=== PATIENT | female | born 1960 | race Caucasian/White ===

== ENCOUNTER 2019-04-29 07:09 | Outpatient (CLI) | payer SELFPAY ==
--- NOTE | 2019-04-29 14:19 | DI.RAD_ITS ---
SYMPTOM/DIAGNOSIS: PUSTULAR PSORIASIS OF PALMS AND/OR SOLES L40.3 ARTHRITIS SERIES: The bones appear normally mineralized. No bony erosions are seen. There is mild narrowing of the interphalangeal joint space of both hands and mild periarticular spurring, consistent with mild osteoarthritis.
== END 2019-04-29 07:29 ==
PROVIDERS: PCP Physician Assistant; Visit Provider Naturopath
DX: L40.3 Pustulosis palmaris et plantaris (principal); M19.041 Primary osteoarthritis, right hand; M19.042 Primary osteoarthritis, left hand
CPT/HCPCS: 73120

== ENCOUNTER 2019-08-14 16:46 | Outpatient (REF) | payer SELFPAY ==
[2019-08-14 21:55] LABS: FREE T4 1.37 ng/dL (0.76-1.46); TSH 1.47 uIU/mL (0.36-3.74)
[2019-08-15 04:46] LABS: Vitamin D 25 Total 65.2 ng/ml (30-100)
[2019-08-15 22:42] LABS: CRP, High Sensitivity 1.45 mg/L (See Note)
[2019-08-15 22:57] LABS: T3,Free 2.9 pg/mL (2.8-5.3)
[2019-08-20 09:08] LABS: IgA 133 mg/dL (85-499); Tissue Transglutaminase IgA <1.2 U/mL (<4.0)
== END 2019-08-14 17:06 ==
LOC: NCHCN 16:46
PROVIDERS: PCP Physician Assistant; Visit Provider Physician Assistant
DX: L40.3 Pustulosis palmaris et plantaris (principal); E78.5 Hyperlipidemia, unspecified; E03.9 Hypothyroidism, unspecified; E55.9 Vitamin D deficiency, unspecified
CPT/HCPCS: 82306; 82784; 83516; 86141; 84439; 84443; 84481

== ENCOUNTER 2020-05-27 15:57 | Outpatient (REF) | payer SELFPAY ==
[2020-05-27 21:15] LABS: TSH (W/Ref FT4) 1.13 uIU/mL (0.36-3.74)
== END 2020-05-27 16:17 ==
LOC: NCHCN 15:57
PROVIDERS: PCP Physician Assistant; Visit Provider Physician Assistant
DX: E03.9 Hypothyroidism, unspecified (principal)
CPT/HCPCS: 84443

== ENCOUNTER 2021-09-07 20:26 | Outpatient (REF) | payer SELFPAY ==
[2021-09-07 19:58] LABS: TSH (W/Ref FT4) 4.65 uIU/mL (0.36-3.74)
[2021-09-07 20:17] LABS: FREE T4 1.04 ng/dL (0.76-1.46)
== END 2021-09-07 20:27 | disposition home or self-care (01) ==
LOC: NCHCN 20:26
PROVIDERS: PCP Physician Assistant; Visit Provider Physician Assistant
DX: E03.9 Hypothyroidism, unspecified (principal)
CPT/HCPCS: 84439; 84443

== ENCOUNTER 2021-11-04 09:15 | Outpatient (REF) | payer SELFPAY ==
[2021-11-04 19:56] LABS: TSH (W/Ref FT4) 0.19 uIU/mL (0.36-3.74)
[2021-11-04 20:38] LABS: FREE T4 1.38 ng/dL (0.76-1.46)
== END 2021-11-04 09:16 | disposition home or self-care (01) ==
LOC: NCHCN 09:15
PROVIDERS: PCP Physician Assistant; Visit Provider Physician Assistant
DX: E03.9 Hypothyroidism, unspecified (principal)
CPT/HCPCS: 84439; 84443

== ENCOUNTER 2022-09-07 17:54 | Outpatient (REF) | payer SELFPAY ==
[2022-09-07 21:55] LABS: TSH 0.06 uIU/mL (0.36-3.74)
== END 2022-09-07 17:55 | disposition home or self-care (01) ==
LOC: NCHCN 17:54
PROVIDERS: PCP Physician Assistant; Visit Provider Physician Assistant
DX: E03.9 Hypothyroidism, unspecified (principal)
CPT/HCPCS: 84443

== ENCOUNTER 2022-11-07 13:23 | Outpatient (REF) | payer SELFPAY ==
[2022-11-07 19:41] LABS: TSH 0.04 uIU/mL (0.36-3.74)
== END 2022-11-07 13:24 | disposition home or self-care (01) ==
LOC: NCHCN 13:23
PROVIDERS: PCP Physician Assistant; Visit Provider Physician Assistant
DX: E03.9 Hypothyroidism, unspecified (principal)
CPT/HCPCS: 84443

== ENCOUNTER 2022-12-16 13:10 | Outpatient (REF) | payer SELFPAY ==
[2022-12-16 20:08] LABS: TSH 0.11 uIU/mL (0.36-3.74)
== END 2022-12-16 13:11 | disposition home or self-care (01) ==
LOC: NCHCN 13:10
PROVIDERS: PCP Physician Assistant; Visit Provider Physician Assistant
DX: E03.9 Hypothyroidism, unspecified (principal)
CPT/HCPCS: 84443

== ENCOUNTER 2023-01-26 09:41 | Outpatient (REF) | payer SELFPAY ==
[2023-01-26 19:25] LABS: TSH 0.86 uIU/mL (0.36-3.74)
== END 2023-01-26 09:42 | disposition home or self-care (01) ==
LOC: NCHCN 09:41
PROVIDERS: PCP Physician Assistant; Visit Provider Physician Assistant
DX: E03.9 Hypothyroidism, unspecified (principal)
CPT/HCPCS: 84443

== ENCOUNTER 2023-09-13 10:44 | Outpatient (REF) | payer SELFPAY ==
[2023-09-08 19:23] LABS: TSH (W/Ref FT4) 2.37 uIU/mL (0.36-3.74)
== END 2023-09-13 10:45 | disposition home or self-care (01) ==
LOC: NCHCN 10:44
PROVIDERS: PCP Physician Assistant; Visit Provider Physician Assistant
DX: E03.9 Hypothyroidism, unspecified (principal)
CPT/HCPCS: 84443

== ENCOUNTER 2024-09-13 20:01 | Outpatient (REF) | payer SELFPAY ==
[2024-09-13 19:27] LABS: TSH (W/Ref FT4) 1.27 uIU/mL (0.36-3.74)
--- OUTSIDE RECORDS SUMMARY | 2024-09-13 20:03 | XMS_ITS | Encounter Summary ---
Author Organization [facility] Address [address] [place] [address] Care Team Providers Care Grey Percher Name Role Phone Unavailable Primary Care Provider Unavailabl e Encounter Details Date Type Department Care Team (Late st Contact Info) Description 01/18/[address] [facility] - Maple conversion [address] [place] [address] Codi Garcia MD [address] [place] [address] [address] [place] [address] Social History Tobacco Use Types Packs/Day Years Used Date Smoking Tobacco: Never Assessed Comments Unknown Sex and Gender Information Value Date Recorded Sex Assigned at Not on file Legal Sex Female 18:05 EST Gender Identity Not on file Sexual Orientation Not on file documented as of this encounter Plan of Treatment Not on file documented as of this encounter Procedures Procedure Name Priority Date/Time Associated Diagnosis Comments CYTOPATHOLOGY Routine 01/18/2001 0:00 EDT documented in this encounter Results * CYTOPATHOLOGY (01/18/2001 0:00 EDT) Pathology Report: CYTOPATHOLOGY REPORT Reports generated via electronic interface contain original data; however they are lacking the format of the original report. Caution should be taken when reading/interpreti ng unformatted reports. Name: ? SOPHIE NORWOOD ? Accession #: ? [id number] : ? 1960 (Age: 40) ??F ?Collect Date: ? 01/18/2001 Location: ? [facility] ? Receive Date: ? 01/22/2001 Provider: ?CODI GARCIA MD Copy to: ?BEATRICE KAUR ? Specimen/Source: ?ThinPrep Pap Test, Cervix/Endocervix Last Menstrual Period: ? 01/04/01 Hormonal/Contracep tive Status: ? Intrauterine device ? SPECIMEN ADEQUACY ? Satisfactory for evaluation. GENERAL CATEGORIZATION ? Within Normal Limits ? Document reviewed and electronically signed by: ? Jeanna Gonsalez, SCT(ASCP) ? Report Date: ??01/23/2001 13:53 End of Report [facility] 01/18/2001 01/22/2001 us Codi Garcia MD PATHOLOGY ORDERABLES Final Resul t [facility] [address] [place] [address] documented in this encounter Visit Diagnoses Not on filedocumented in this encounter
--- OUTSIDE RECORDS SUMMARY | 2024-09-13 20:03 | XMS_ITS | Encounter Summary ---
Author Organization [facility] Address [address] [place] [address] Care Team Providers Care Environmental Health And Safety Intern Name Role Phone Unavailable Primary Care Provider Unavailabl e Encounter Details Date Type Department Care Team (Late st Contact Info) Description 09/20/2004 Results Only [facility] - Maple conversion [address] [place] [address] Codi Garcia MD [address] [place] [address] [address] [place] [address] Social History Tobacco Use Types [...] Priority Date/Time Associated Diagnosis Comments CYTOPATHOLOGY Routine 09/20/2004 0:00 EST documented in this encounter Results * CYTOPATHOLOGY (09/20/2004 0:00 EST) Pathology Report: CYTOPATHOLOGY REPORT Reports generated via electronic interface contain original data; however they are lacking the format of the original report. Caution should be taken when reading/interpreti ng unformatted reports. Name: ? SOPHIE NORWOOD ? Accession #: ? [id number] : ? 1960 (Age: 43) ??F ?Collect Date: ? 09/20/2004 Location: ? [facility] ? Receive Date: ? 09/22/2004 Provider: ?CODI GARCIA MD Copy to: ? Specimen/Source: ?ThinPrep Pap Test, Cervix/Endocervix Last Menstrual Period: ? 2001 Hormonal/Contracep tive Status: ? Yes: Cenestin Treatment History: ? Hysterectomy: BSO 2001 Other: ? HPVA - HPV testing requested if ASC-US on the current ThinPrep Pap test. ? SPECIMEN ADEQUACY ? Satisfactory for Evaluation - assessment of transformation zone component not applicable ( e.g. atrophy, vaginal sample, hysterectomy) GENERAL CATEGORIZATION ? Negative for Intraepithelial Lesion or Malignancy ? Document reviewed and electronically signed by: ? CLARITA Escobedo(ASCP) ? Report Date: ??09/23/2004 14:15 End of Report [facility] 09/20/2004 09/22/2004 us Codi Garcia MD PATHOLOGY ORDERABLES Final Resul t [facility] [address] [place] [address] documented in this encounter Visit Diagnoses Not on filedocumented in this encounter
--- OUTSIDE RECORDS SUMMARY | 2024-09-13 20:03 | XMS_ITS | Encounter Summary ---
Author Organization [facility] Address [address] [place] [address] Care Team Providers Care Linux Network Administrator Name Role Phone Unknown, Provider MD Primary Care Provider Unava ilable Reason for Visit * Reason Onset Date Comments Other 08/04/2014 Encounter Details Date Type Department Care Team (Late st Contact Info) Description 08/04/2014 Telephone [facility] Urology - [facility] [address] [place] [address] Brie Bradley, RN Other Social History Tobacco Use Types Packs/Day Years Used Date Smoking Tobacco: Never Assessed Comments Unknown Sex and Gender Information Value Date Recorded Sex Assigned at Not on file Legal Sex Female 18:05 EST Gender Identity Not on file Sexual Orientation Not on file documented as of this encounter Miscellaneous Notes * Telephone Encounter - Brie Bradley, RN - 08/04/2014 3216 EST TC to pt, no answer, left msg. Pharmacy would like the allergies list to be updated. Requesting pt to call back to the office. documented in this encounter Plan of Treatment Not on file documented as of this encounter Visit Diagnoses Not on filedocumented in this encounter Care Teams Linux Network Administrator Relationship Specialty Start Date End Date Unknown, Provider, PCP - General 07/24/14 08/06/14 documented as of this encounter
--- OUTSIDE RECORDS SUMMARY | 2024-09-13 20:03 | XMS_ITS | Encounter Summary ---
Author Organization [facility] Address [address] [place] [address] Care Team Providers Care Canal Driver Name Role Phone Geoff Carranza Primary Care Provider [phone] Reason for Visit * Reason Comments Post-OP Follow Up Cystoscopy Stent Removal Encounter Details Date Type Department Care Team (Late st Contact Info) Description 08/15/2014 10:15 EST Post-op Visit [facility] Urology - [facility] [address] [place], [place] [id number] Yony Khan MD [address] [place] [id number] Nephrolithiasis (Primary Dx) Social History Tobacco Use Types Packs/Day Years Used Date Smoking Tobacco: Never Assessed Comments Unknown Sex and Gender Information Value Date Recorded Sex Assigned at Not on file Legal Sex Female 18:05 EST Gender Identity Not on file Sexual Orientation Not on file documented as of this encounter Progress Notes * Yony Khan - 08/15/2014 1025 EST This is a 53-year-old female who had right-sided ureteral calculi. She underwent stent placement followed by ureteroscopy. Her stones were removed in their entirety and she presents now for followup.Her stones were calcium oxalate, 70% dihydrate, 30% monohydrate. She has been feeling well and presents now for removal of her stent. PROCEDURE: After obtaining informed consent, she was taken to the exam room, placed in the supine position. She was prepped and draped in the standard sterile fashion. The cystoscope was inserted into the bladder. The stent was seen emanating from the right ureteral orifice and grasped with a flexible grasper and removed in its entirety. She tolerated the procedure well. She was given one ciprofloxin postprocedure. This was her first stone and we talked about general stone prevention measures including hydration, increasing fruits and vegetables, decreasing sodium and animal protein. She willfollow up on an as-needed basis. documented in this encounter Plan of Treatment Not on file documented as of this encounter Visit Diagnoses Diagnosis Nephrolithiasis- Primary Calculus of kidney documented in this encounter Care Teams Canal Driver Relationship Specialty Start Date End Date Geoff Carranza PA [address] [place] [address] PCP - General 08/07/14 documented as of this encounter
--- OUTSIDE RECORDS SUMMARY | 2024-09-13 20:03 | XMS_ITS | Encounter Summary ---
Author Organization [facility] Address [address] [place] [address] Care Team Providers Care Contracts Attorney Name Role Phone Unavailable Primary Care Provider Unavailabl e Encounter Details Date Type Department Care Team (Late st Contact Info) Description 02/19/2007 Results Only [facility] - Maple conversion [address] [place] [address] Codi Garcia MD [address] [place] [address] [address] [place] [address] Social History Tobacco Use Types [...] Procedure Name Priority Date/Time Associated Diagnosis Comments HPV DETECTION, HIGH RISK TYPES Routine 02/19/2007 8:10 EDT CYTOPATHOLOGY Routine 02/19/2007 0:00 EDT documented in this encounter Results * HUMAN PAPILLOMA VIRUS DNA TEST (02/19/2007 8:10 EDT) Specimen Description Cervix, ThinPrep vial [facility] Result Negative for HPV types 16, 18, 31, 33, 35, 39, 45, 51, 52, 56, 58, 59, and 68. [facility] Report Status Final [id number] [facility] 02/19/2007 8:10 EDT 02/28/2007 8:10 EDT us Codi Garcia MD MICROBIOLOGY - GENERAL ORDERABLE S Final Result [facility] [address] [place] [address] * CYTOPATHOLOGY (02/19/2007 0:00 EDT) Pathology Report: CYTOPATHOLOGY REPORT Reports generated via electronic interface contain original data; however they are lacking the format of the original report. Caution should be taken when reading/interpreti ng unformatted reports. Name: ? SOPHIE RINCON ? Accession #: ? [id number] : ? 1960 (Age: 46) ??F ?Collect Date: ? 02/19/2007 Location: ? [facility] ? Receive Date: ? 02/21/2007 Provider: ?CODI GARCIA MD Copy to: ? Specimen/Source: ?ThinPrep Pap Test, Vagina, processed on [employer] ThinPrep Imaging System, with manual evaluation Last Menstrual Period: ? 2001 Hormonal/Contracep tive Status: ? Yes Treatment History: ? IMANI/BSO: 2001 Other: ? Additional clinical information: Paps WNL since HPVDX - HPV testing requested regardless of diagnosis on current ThinPrep Pap test. ? SPECIMEN ADEQUACY ? Satisfactory for Evaluation - assessment of transformation zone component not applicable ( e.g. atrophy, vaginal sample, hysterectomy) GENERAL CATEGORIZATION ? Negative for Intraepithelial Lesion or Malignancy INTERPRETATION ? Shift in chioma present suggestive of bacterial vaginosis. ? Document reviewed and electronically signed by: ? CLARITA Gray(ASCP) ? Report Date: ??02/27/2007 14:19 End of Report [facility] 02/19/2007 02/21/2007 us Codi Garcia MD PATHOLOGY ORDERABLES Final Resul t [facility] [address] [place] [address] documented in this encounter Visit Diagnoses Not on filedocumented in this encounter
--- OUTSIDE RECORDS SUMMARY | 2024-09-13 20:03 | XMS_ITS | Encounter Summary ---
Author Organization [facility] Address [address] [place] [address] Care Team Providers Care Director Of Recruiting Name Role Phone Unknown, Provider MD Primary Care Provider Unava ilable Reason for Visit * Reason Onset Date Comments Appointment Related 08/06/2014 Encounter Details Date Type Department Care Team ([facility] st Contact Info) Description 08/06/2014 Telephone [facility] Urology - [facility] [place] [address] [place], [place] [id number] Yony Khan MD [address] [place] [address] Appointment Related Social History Tobacco Use Types Packs/Day Years Used Date Smoking Tobacco: Never Assessed Comments Unknown Sex and Gender Information Value Date Recorded Sex Assigned at Not on file Legal Sex Female 18:05 EST Gender Identity Not on file Sexual Orientation Not on file documented as of this encounter Miscellaneous Notes * Telephone Encounter - Twyla Atkinson - 08/06/2014 1429 EST Procedure confirmed with patient. Pt was instructed to check in 3rd floor registration at 12:00 pm for a procedure at 2:00 pm on 08/07/2014. Pt is aware that there is nothing to eat or drink after midnight and will need a otr company truck driver. Twyla Atkinson documented in this encounter Plan of Treatment Not on file documented as of this encounter Visit Diagnoses Not on filedocumented in this encounter Care Teams Director Of Recruiting Relationship Specialty Start Date End Date Unknown, Provider, PCP - General 07/24/14 08/06/14 documented as of this encounter
--- OUTSIDE RECORDS SUMMARY | 2024-09-13 20:03 | XMS_ITS | Referral Summary ---
Author Organization [facility] Address [address] [place] [address] Care Team Providers Care Food Safety Auditor Name Role Phone Geoff Carranza Primary Care Provider [phone] Allergies No known active allergies Medications LEVOTHYROXINE SODIUM (SYNTHROID ORAL) Take 1 Tab by mouth daily. Active FLUOXETINE HCL (FLUOXETINE ORAL) Take 2 Caps by mouth daily. Active oxyCODONE-acetam inophen (PERCOCET) 5-325 mg per tablet Take 1 Tab by mouth every 6 hours as needed for Pain. Active oxyCODONE (ROXICODONE) 5 mg immediate release tablet Take 1 Tab by mouth every 4 hours. 15 Tab 0 08/07/2014 Active Social History Tobacco Use Types Packs/Day Years Used Date Smoking Tobacco: Never Assessed Comments Unknown Sex and Gender Information Value Date Recorded Sex Assigned at Not on file Legal Sex Female 18:05 EST Gender Identity Not on file Sexual Orientation Not on file Last Filed Vital Signs Vital Sign Reading Time Taken Comments Blood Pressure 147/82 08/07/2014 1715 EST Pulse - - Temperature 36.1 ??C (97 ??F) 08/07/2014 1715 EST Respiratory Rate 14 08/07/2014 1715 EST Oxygen Saturation 98% 08/07/2014 1715 EST Inhaled Oxygen Concentration - - Weight - - Height - - Body Mass Index - - Plan of Treatment Not on file Advance Directives For more information, please contact: [phone] * Full Code (Latest Code Status on File) Date Activated Date Inactivated Comments 08/07/2014 12:58 08/07/2014 19:35 Care Teams Food Safety Auditor Relationship Specialty Start Date End Date Geoff Carranza PA [address] [place] [address] PCP - General 08/07/14
--- OUTSIDE RECORDS SUMMARY | 2024-09-13 20:03 | XMS_ITS | Clinical Summary ---
Author Organization [facility] Address [address] [place] [address] Care Team Providers Care Driller'S Assistant Name Role Phone Geoff Carranza Primary Care Provider [phone] Allergies No known active allergies Medications LEVOTHYROXINE [...] Mass Index - - Plan of Treatment Health Maintenance Due Date Last Done Comments Hepatitis C Screen 1960 COVID-19 Vaccine (2023-25 season) 2024 RSV Immunization ( o r 60+ Years) (1 - 1-dose 75+ series) 2034 Advance Directives For more information, please contact: [phone] * Full Code (Latest Code Status on File) Date Activated Date Inactivated Comments 08/07/2014 12:58 08/07/2014 19:35 Care Teams Driller'S Assistant Relationship Specialty Start Date End Date Geoff Carranza PA [address] [place] [id number] PCP - General 08/07/14
--- OUTSIDE RECORDS SUMMARY | 2024-09-13 20:03 | XMS_ITS | Encounter Summary ---
Author Organization [facility] Address [address] [place] [address] Care Team Providers Care Drawing Box Tender Name Role Phone Geoff Carranza Primary Care Provider [phone] Reason for Visit * Reason Onset Date Comments Follow-up 08/08/2014 stent removed Encounter Details Date Type Department Care Team (Late st Contact Info) Description 08/08/2014 Telephone [facility] Urology - [facility] [address] [place], [place] [id number] Yony Khan MD [address] [place] [phone] Follow-up (stent removed) Social History Tobacco Use Types Packs/Day Years Used Date Smoking Tobacco: Never Assessed Comments Unknown Sex and Gender Information Value Date Recorded Sex Assigned at Not on file Legal Sex Female 18:05 EST Gender Identity Not on file Sexual Orientation Not on file documented as of this encounter Miscellaneous Notes * Telephone Encounter - Twyla Mckeon - 08/08/2014 0920 EST Pt ready to schedule stent removal, one week from 08/07/14 procedure. Per pt she was unable to have appt with Dr. Phoenix in [place]. documented in this encounter Plan of Treatment Not on file documented as of this encounter Visit Diagnoses Not on filedocumented in this encounter Care Teams Drawing Box Tender Relationship Specialty Start Date End Date Geoff Carranza PA [address] [place] [address] PCP - General 08/07/14 documented as of this encounter
--- OUTSIDE RECORDS SUMMARY | 2024-09-13 20:03 | XMS_ITS | Encounter Summary ---
Author Organization [facility] Address [address] [place] [address] Care Team Providers Care Mower Operator Name Role Phone Geoff Carranza Primary Care Provider [phone] Encounter Details Date Type Department Care Team (Late st Contact Info) Description 08/15/2019 Lab Requisition [facility] Pathology & Laboratory Medicine - [facility] [address] [place] [address] Unknown, Provider, Social History Tobacco Use Types Packs/Day Years [...] Procedure Name Priority Date/Time Associated Diagnosis Comments HOLD SST Routine 08/15/2019 21:33 EST CELIAC DISEASE PANEL Routine 08/14/2019 16:35 EST HIGH SENSITIVITY C-REACTIVE PROTEIN (CARDIOVASCULAR DISEASE) Routine 08/14/2019 16:35 EST T3 FREE Routine 08/14/2019 16:35 EST documented in this encounter Results * HOLD SST (08/15/2019 21:33 EST) Hold Hold 08/15/2019 22:45 EST [facility] Blood VENOUS BLOOD / Unknown 08/15/2019 21:33 EST 08/15/2019 21:33 EST us Provider Unknown LAB INFO SERVICE AND SUPPORT & PHONE RESULT Final Result Performing Organization Address [facility]/ZIP Co de Phone Number [facility] [address] [place] [address] * T3 FREE (08/14/2019 16:35 EST) [facility] T3, Free 2.9 2.8 - 5.3 pg/mL 08/15/2019 22:53 EST [facility] Blood VENOUS BLOOD / Unknown 08/14/2019 16:35 EST 08/15/2019 21:33 EST Provider Unknown CHEMISTRY & BLOOD GAS ORDERA BLES Final Result Performing Organization Address [facility] de Phone Number [facility] [address] [place] [address] * HIGH SENSITIVITY C-REACTIVE PROTEIN (CARDIOVASCULAR DISEASE) (08/14/2019 16:35 EST) [facility] High Sensitivity CRP 1.45 See Note mg/L 08/15/2019 22:38 EST [facility] Comment: Reference Range: ??Source: The [place] [employer] Clinical Practice Recommendations, 2003 ??Low Risk: ? <1.0 mg/L ??Average Risk: ?? 1.0 - 3.0 mg/L ??High Risk: ?>3.0 mg/L ??Indeterminate*: >10.0 mg/L ??*May be an indication of another source of inflammation or infection Blood VENOUS BLOOD / Unknown 08/14/2019 16:35 EST 08/15/2019 21:33 EST Provider Unknown CHEMISTRY & BLOOD GAS ORDERA BLES Final Result Performing Organization Address [facility] Co de Phone Number [facility] [address] [place] [address] * CELIAC DISEASE PANEL (08/14/2019 16:35 EST) [facility] Tissue Transglutaminase Antibody IGA <1.2 <4.0 U/mL 08/20/2019 9:04 [facility] Comment: A negative result may be due to IgA deficiency and does not rule out celiac disease. ? Negative: ??<4.0 U/mL ? Weak Positive: ??4.0 - 10.0 U/mL ? Positive: ??>10.0 U/mL Results were obtained with the MirimusA Lite R h-tTG IgA MICKIE assay on the [employer]. This is an appended report. ??These results have been appended to a previously preliminary verified report. IgA 133 85 - 499 mg/dL 08/20/2019 9:04 [facility] Celiac Disease Interpretation Negative Serology. Celiac disease unlikely. Approximately 10% of patients with celiac disease are seronegative. Patients who are already adhering to a gluten-free diet may also be seronegative. If celiac disease is highly clinically suspected, referral to gastroenterology for additional evaluation is recommended. 08/20/2019 9:04 [facility] Blood VENOUS BLOOD / Unknown 08/14/2019 16:35 EST 08/15/2019 21:33 EST us Provider Unknown IMMUNOLOGY AND SEROLOGY ROBER CASILLAS Edited Result - Final [facility] [address] [place] [address] documented in this encounter Visit Diagnoses Not on filedocumented in this encounter Care Teams Mower Operator Relationship Specialty Start Date End Date Geoff Carranza PA [address] [place] [address] PCP - General 08/07/14 documented as of this encounter
--- OUTSIDE RECORDS SUMMARY | 2024-09-13 20:03 | XMS_ITS | Encounter Summary ---
Author Organization [facility] Address [address] [place] [address] Care Team Providers Care Integrated Marketing Manager Name Role Phone Unavailable Primary Care Provider Unavailabl e Encounter Details Date Type Department Care Team (Late st Contact Info) Description 06/14/2002 Results Only [facility] - Maple conversion [address] [place] [address] Codi Garcia MD [address] [place] [address] [address] [place] [address] Social History Tobacco Use Types [...] Priority Date/Time Associated Diagnosis Comments CYTOPATHOLOGY Routine 06/14/2002 0:00 EDT documented in this encounter Results * CYTOPATHOLOGY (06/14/2002 0:00 EDT) Pathology Report: CYTOPATHOLOGY REPORT Reports generated via electronic interface contain original data; however they are lacking the format of the original report. Caution should be taken when reading/interpreti ng unformatted reports. Name: ? SOPHIE NORWOOD ? Accession #: ? [id number] : ? 1960 (Age: 41) ??F ?Collect Date: ? 06/14/2002 Location: ? [facility] ? Receive Date: ? 06/17/2002 Provider: ?CODI GARCIA MD Copy to: ? Specimen/Source: ?ThinPrep Pap Test, Vagina Last Menstrual Period: ? 03/04 Hormonal/Contracep tive Status: ? Yes Treatment History: ? IMANI/BSO Other: ? HPVA - HPV testing requested if ASC-US on the current ThinPrep Pap test. ? SPECIMEN ADEQUACY ? Satisfactory for Evaluation - assessment of transformation zone component not applicable ( e.g. atrophy, vaginal sample, hysterectomy) GENERAL CATEGORIZATION ? Negative for Intraepithelial Lesion or Malignancy ? Document reviewed and electronically signed by: ? NEY Kent(ASCP) ? Report Date: ??06/20/2002 12:36 End of Report [facility] 06/14/2002 06/17/2002 us Codi Garcia MD PATHOLOGY ORDERABLES Final Resul t [facility] [address] [place] [address] documented in this encounter Visit Diagnoses Not on filedocumented in this encounter
--- OUTSIDE RECORDS SUMMARY | 2024-09-13 20:03 | XMS_ITS | Encounter Summary ---
Author Organization [facility] Address [address] [place] [address] Care Team Providers Care Home Health Nurse Licensed Practical Name Role Phone Unknown, Provider Primary Care Provider Geoff Lyles Primary Care Provider [phone] Encounter Details Date Type Department Care Team (Late st Contact Info) Description 07/28/2014 Pre-Procedure Orders Encounter [facility] UROLOGY [address] [place], [place] [address] Jamar Bearden, DO [address] [facility], [address] [place] [id number] Social History Tobacco Use Types Packs/Day Years [...] on filedocumented in this encounter Care Teams Home Health Nurse Licensed Practical Relationship Specialty Start Date End Date Unknown, Provider, PCP - General 07/24/14 08/06/14 Geoff Carranza PA [address] [place] [address] PCP - General 08/07/14 documented as of this encounter
--- OUTSIDE RECORDS SUMMARY | 2024-09-13 20:03 | XMS_ITS | Encounter Summary ---
Author Organization [facility] Address [address] [place] [address] Care Team Providers Care Claims Assistant Name Role Phone Geoff Carranza Primary Care Provider Encounter Details Date Type Department Care Team (Late st Contact Info) Description 08/07/2014 11:52 EST - 08/07/2014 17:32 EST Hospital Encounter [facility] Perioperative Services- [address] [id number] Jamar Bearden, DO [address] [facility], [address] [place] [address] Yony Khan MD [address] [place] [phone] Discharge Disposition: Home or Self Care Social History Tobacco Use Types Packs/Day Years Used Date Smoking Tobacco: Never Assessed Comments Unknown Sex and Gender Information Value Date Recorded Sex Assigned at Not on file Legal Sex Female 18:05 EST Gender Identity Not on file Sexual Orientation Not on file documented as of this encounter Last Filed Vital Signs Vital Sign Reading Time Taken Comments Blood Pressure 147/82 08/07/2014 1715 EST Pulse - - Temperature 36.1 ??C (97 ??F) 08/07/2014 1715 EST Respiratory Rate 14 08/07/2014 1715 EST Oxygen Saturation 98% 08/07/2014 1715 EST Inhaled Oxygen Concentration - - Weight - - Height - - Body Mass Index - - documented in this encounter Discharge Instructions * Discharge Instructions* Eveline Cary MD - 08/07/2014 16:11 EST Diet: Gradually return to normal eating as you wish. Activity: No restrictions. Driving: No driving while taking narcotic pain medication Skin/Wound Care: Resume normal skin care. Bathing: No restrictions Pending Results: stone analysis Symptoms to Call Your Doctor About: Chest pain (angina) Dizziness or fainting Decreased urine output Fever greater than 101.5 or chills Inability to swallow or increasing difficulty swallowing Increased or new pain Nausea or vomiting Pain unrelieved by medication Recurrence of symptoms that brought you to the hospital Severe or increasing headache Shortness of breath or rapid breathing Skin rash Signs of infection such as pain, redness, swelling or drainage at procedure or wound site Swelling in your legs Appointments: See Yony Thornton MD or Dr. Phoenix up in [facility] in 1 week. The clinic will call you with your appointment. We will try to get you in to [facility]. Please call [phone] with any questions or concerns. Follow-up Services Contacted at Discharge: Attending physician Health Risk and Disease Information: Not applicable documented in this encounter Medications at Time of Discharge FLUOXETINE HCL (FLUOXETINE ORAL) Take 2 Caps by mouth daily. LEVOTHYROXINE SODIUM (SYNTHROID ORAL) Take 1 Tab by mouth daily. oxyCODONE (ROXICODONE) 5 mg immediate release tablet Take 1 Tab by mouth every 4 hours. 15 Tab 0 08/07/2014 oxyCODONE-acetami nophen (PERCOCET) 5-325 mg per tablet Take 1 Tab by mouth every 6 hours as needed for Pain. ciprofloxacin (CIPRO) 500 mg tablet Take 1 Tab by mouth every 12 hours for 3 days. 6 Tab 0 08/07/2014 08/10/2014 documented as of this encounter Ordered Prescriptions Prescription Sig Dispense Quantity Refills Last Filled Start Date End Date oxyCODONE (ROXICODONE) 5 mg immediate release tablet Take 1 Tab by mouth every 4 hours. 15 Tab 0 08/07/2014 ciprofloxacin (CIPRO) 500 mg tablet Take 1 Tab by mouth every 12 hours for 3 days. 6 Tab 0 08/07/2014 08/10/2014 documented in this encounter Discharge Disposition Disposition Code Departure Means Destination Home or Self Care documented in this encounter H&P Notes * Eveline Cary MD - 08/07/2014 1429 EST The preoperative history and physical which was performed within 30 days of this procedure has been reviewed and the clinically appropriate elements of the physical examination have been repeated. There are no changes to the documented history and physical or if so such changes are documented below Eveline Cary MD 08/07/2014 14:29 Cosigned by Yony Khan at 08/08/2014 16:08 EST Source Note - CELL PREPARER, SCAN 2 - 08/04/2014 16:27 EST * CELL PREPARER, SCAN 2 - 08/04/2014 1627 EST documented in this encounter Nursing Notes * CELL PREPARER, SCAN 2 - 08/11/2014 1057 EST documented in this encounter OR Notes * Anesthesia Procedure Notes - CELL PREPARER, SCAN 2 - 08/14/2014 1214 EST * OR PreOp - CELL PREPARER, SCAN 2 - 08/11/2014 1057 EST * OR Surgeon - Yony Khan - 08/07/2014 2347 EST OPERATIVE REPORT SERVICE DATE: 08/07/2014 SURGEON: Yony Carrasco MD CYTOGENETICS TECHNOLOGIST: Eveline Cary MD PREOPERATIVE DIAGNOSIS: Right ureteral stone, status post stenting. POSTOPERATIVE DIAGNOSIS: Right ureteral stone, status post stenting. PROCEDURE: Cystoscopy, right ureteroscopy with stone retrieval and right ureteral stent exchange. ANESTHESIA: LMA. INDICATIONS: This is a 53-year-old female that was having right-sided flank pain. She presented to [facility] and had a stent placed after a CT renal colic revealed a 5 mm stone in the mid right ureter. She presents today for definitive stone treatment. NARRATIVE: The patient was admitted and brought to the operating room. The part 1 of the safety checklist was performed. She was placed in dorsal lithotomy position, prepped and draped in sterile fashion and part 2 of the safety checklist was performed. On prepping, we noted that the string and thetip of the stent were at the opening of the urethra and, therefore, a 0.035 Sensor wire was passed through the stent up into the right kidney confirmed by fluoroscopy. The stent was then removed using Seldinger technique. A semi-rigid ureteroscope was then passed through the urethra into the bladder and up into the right ureteral orifice. It passed fairly easily. We did go up approximately to themid to proximal ureter and approached a narrow area that had a flap of tissue over it. It was quitetight and so we could not pass that spot with some pressure and decided to switch over to a flexible ureteroscope. The semirigid ureteroscope was then removed. A flexible ureteroscope was then passedthrough the urethra meatus and up into the right ureteral orifice under visual guidance. It passed e asily up into the same spot where it got stuck with the semirigid ureteroscope. This was a tight spot, although the flexible ureteroscope was able to pass with minimal pressure. Just proximal to thistight spot there were 2 medium-sized stones and a few small stones. These were retrieved with a 0-tipped nitinol basket. Once all the stones were removed we passed the ureteroscope up through the proximal ureter, which was otherwise unremarkable. Once we got past that spot the stones we did examinethe renal pelvis and the calyces, nothing was noted in the upper mid poles. In the lower pole calyxthere was a small stone that was found, although only passed a 0-tipped basket to retrieve it. The stone fragmented into dust. We reexamined the calices once more and there were no abnormalities, no masses or lesions were noted. We examined the ureter on the way down at the tight spot. There was some firmness of the mucosa and some erythema and edema, but the scope passed easily, especially on the way out. The flexible ureteroscope was removed. A 6-Spanish x 24 cm JJ stent was then passed up into the kidney over the 0.035 Sensor wire using Seldinger technique. A curl was confirmed in the kidney and in the bladder using fluoroscopy. Once the wire was removed a sheath and obturator of the 22.5-Spanish cystoscope were then passed into the bladder in order to empty it. The patient tolerated theprocedure well, and there were no immediate complications. ESTIMATED BLOOD LOSS: Minimal. FLUIDS: 1 L of LR. URINE OUTPUT: Not measured. SPECIMENS: Stone. CULTURES: None. FOREIGN MATERIALS RETAINED: A 6-Spanish x 24 cm JJ stent. COMPLICATIONS: None. DISPOSITION: PACU in stable condition. She will follow up in 1 week for stent removal. Her preference is to follow up with Dr Phoenix in [facility], although if she cannot get a timely appointment, she will come down here for her stent removal. Unless otherwise noted, there were no complications, no blood loss, no cultures obtained, no specimens removed, and no drains retained. Attending attestation: I was present during the entire procedure. I saw and examined the patient 08/12/2014. I agree with the findings and plan of care documented in the resident's/fellow's note. Yony Khan MD 08/12/2014 17:10 Yony Khan MD 04 30 PM / Eveline Cary MD kn Confirmation: [id number] Dictation ID: [id number] * OR PreOp - CELL PREPARER, SCAN 2 - 08/07/2014 1381 EST * Anesthesia Preprocedure Evaluation - CELL PREPARER, SCAN 2 - 08/07/2014 1546 EST * Anesthesia Preprocedure Evaluation - CELL PREPARER, SCAN 2 - 08/07/2014 1506 EST documented in this encounter Miscellaneous Notes * Anesthesia Post-Eval - Jose Doss - 08/07/2014 1744 EST Post Anesthesia Evaluation Note Date of Service: 08/07/2014 Carolynn Norwood, a 53 y.o. year old female has received General Anesthesia today. She has been evaluated, assessed and discharged from anesthesia care with stable cardiorespiratory function and alertmental status. The last set of recorded vital signs and pain rating were reviewed: Temp: 36.1 ??C (97 ??F) (08/07/141714), Heart Rate: 58 BPM (08/07/141714), BP: 147/82 mmHg (08/07/141714), Resp: 14 (08/07/141714), SpO2: 98 % (08/07/141714),Numeric Pain Level (Scale 1-10): 0 Carolynn Norwood participated in this evaluation unless otherwise noted. Her pain, nausea and vomiting have been managed and her body temperature and fluid balance have been restored. Additional monitoring and assessment needs have been addressed. If present, any postoperative events are documented below. Jose Doss MD 08/07/2014 17:44 * Brief Op Note - Eveline Cary MD - 08/07/2014 1611 EST Urology Brief OP Note Surgeon: Yony Khan M.D Lead Vulcanizing Operator: Eveline Cary M.D. Pre-procedure diagnosis: Right ureteral stone Post-procedure diagnosis: same Procedure: Cystoscopy, right ureteroscopy with stone retrieval, right ureteral stent exchange Anesth: GETA Findings: Stent and string out of urethra on prepping. Tight spot in mid ureter behind which were two medium and a few small stones, flex mini passed easily, stone in lower pole crumbled on basketing EBL: min IVF: 1L LR UOP: Not measured Specimen: stone Cultures: none Foreign Material Retained: 6x24 JJ stent Complications: none Disposition: PACU in stable condition, one week for stent removal either at [facility] or here Eveline Cary MD 08/07/2014 16:11 documented in this encounter Plan of Treatment Pending Results Name Type Priority Associated Diagnoses Date /Time OUTSIDE IMAGES - FLUORO BODY Imaging 08/07/2014 9:16 EST OUTSIDE IMAGES - CT BODY Imaging 08/07/2014 9:16 EST documented as of this encounter Procedures Procedure Name Priority Date/Time Associated Diagnosis Comments ECG REPORT - SCANNED 08/11/2014 10:57 EST IMPLANT RECORD - SCANNED 08/11/2014 10:57 EST RETROGRADE UROGRAM Routine 08/07/2014 16 :18 EST KIDNEY STONE ANALYSIS Routine 08/07/2014 15:46 EST ECG REPORT - SCANNED 08/04/2014 16:27 EST documented in this encounter Results * ECG REPORT - SCANNED (08/11/2014 10:57 EST) 08/11/2014 10:5 7 EST us Scan 2 [employer] PROCEDURE/MINOR SURGICAL OR DERABLES Final Result * IMPLANT RECORD - SCANNED (08/11/2014 10:57 EST) 08/11/2014 10:5 7 EST us Scan 2 [employer] PROCEDURE/MINOR SURGICAL OR DERABLES Final Result * RETROGRADE UROGRAM (08/07/2014 16:18 EST) Anatomical Region Laterality Modality Other 08/07/2014 16:1 8 EST Narrative 08/07/2014 16:18 EST Non Reportable Exam Procedure Note 08/07/2014 Non Reportable Exam us Yony Khan MD IMG FLUOROSCOPY ORDERABLES Final Result * KIDNEY STONE ANALYSIS (08/07/2014 15:46 EST) Source RIGHT KIDNEY STONE 08/07/2014 20:25 EST [facility] 1st Constituent 70% Calcium oxalate dihydrate 08/13/2014 8:16 EST [facility] 2nd Constituent 30% Calcium oxalate monohydrate 08/13/2014 8:16 EST [facility] TOPOGRAPHY UNKNOWN / Unknown 08/07/2014 15:46 EST 08/07/2014 20:24 EST us Yony Khan MD GEN LAB UNIT COLLECT ORDERA BLES Final Result Performing Organization Address City/State/[facility] Co de Phone Number [facility] [address] [place] [address] * ECG REPORT - SCANNED (08/04/2014 16:27 EST) 08/04/2014 16:2 7 EST us Scan 2 [employer] PROCEDURE/MINOR SURGICAL OR DERABLES Final Result documented in this encounter Visit Diagnoses Not on filedocumented in this encounter Administered Medications Inactive Administered Medications - up to 3 most recent administrations Medication Order MAR Action Action Date Dose Rate Site ceFAZolin (ANCEF) syringe 2 g 2 g, intravenous, Administer over 10 Minutes, PRE-OP ONCE, 1 dose, On Joanna 08/07/14 at 1315, Routine, Pre-Op DOS Rx Approved Given by Other 08/07/2014 15:13 EST 2 g fentaNYL citrate (PF) 50 mcg/mL injection 25-100 mcg 25-100 mcg, intravenous, EVERY 5 MIN PRN, Starting on Joanna 08/07/14 at 1614, Until Joanna 08/07/14 at 1935, Pain, Routine, Recovery (only) Given 08/07/2014 16:34 EST 50 mcg lactated ringers (LR) infusion 30 mL/hr, intravenous, CONTINUOUS, Starting on Joanna 08/07/14 at 1315, Until Joanna 08/07/14 at 1935, Routine, Pre-Op DOS Rx Approved New Bag 08/07/2014 13:08 EST 30 mL/hr 30 mL/hr documented in this encounter Historical Medications * This list may reflect changes made after this encounter. oxyCODONE-acetami nophen (PERCOCET) 5-325 mg per tablet Take 1 Tab by mouth every 6 hours as needed for Pain. FLUOXETINE HCL (FLUOXETINE ORAL) Take 2 Caps by mouth daily. LEVOTHYROXINE SODIUM (SYNTHROID ORAL) Take 1 Tab by mouth daily. added in this encounter Active and Recently Administered Medications Times are shown in EST. Scheduled Medication Order 08/05/2014 08/06/2014 08/07/2014 ceFAZolin (ANCEF) syringe 2 g (COMPLETED) 2 g, intravenous, Administer over 10 Minutes, PRE-OP ONCE, 1 dose, On Joanna 08/07/14 at 1315, Routine, Pre-Op DOS Rx Approved 1513 (Given by Other - Provider: Tiffany Dominguez RN - Comment: Given by Anesthesia) Continuous Medication Order 08/05/2014 08/06/2014 08/07/2014 lactated ringers (LR) infusion (CANCELED) 30 mL/hr, intravenous, CONTINUOUS, Starting on Joanna 08/07/14 at 1315, Until Joanna 08/07/14 at 1935, Routine, Pre-Op DOS Rx Approved 1308 (New Bag - Prov ider: Ismael Brush RN) PRN Medication Order 08/05/2014 08/06/2014 08/07/2014 fentaNYL citrate (PF) 50 mcg/mL injection 25-100 mcg (CANCELED) 25-100 mcg, intravenous, EVERY 5 MIN PRN, Starting on Joanna 08/07/14 at 1614, Until Joanna 08/07/14 at 1935, Pain, Routine, Recovery (only) 1634 (Given - Provid er: Jeanna Pino RN) documented in this encounter Orders Medications Ordered That Dirk ht Not Have Been Administered Count Last Ordered Date First Ordered Date atropine 0.1 mg/mL syringe 0.5 mg 1 014 diphenhydrAMINE (BENADRYL) i njection 6.25 mg 1 08/07/2014 lactated ringers (LR) infusion 1 08/07/2014 nalOXone (NARCAN) injection 0.2 mg 1 2013 ondansetron (PF) (ZOFRAN) injection 2 mg 1 08/07/2014 Transfer Count Last Ordered Date First Orde red Date NOTIFY PPS PACU PATIENT DISCHARGE 1 014 NOTIFY PPS PATIENT ARRIVAL IN PACU 1 2013 Discharge Count Last Ordered Date First Orde red Date DISCHARGE PATIENT 1 08/07/2014 documented in this encounter Care Teams Claims Assistant Relationship Specialty Start Date End Date Geoff Carranza PA [address] [place] [address] PCP - General 08/07/14 documented as of this encounter
== END 2024-09-13 20:02 | disposition home or self-care (01) ==
LOC: NCHCN 20:01
PROVIDERS: PCP Physician Assistant; Visit Provider Physician Assistant
DX: E03.9 Hypothyroidism, unspecified (principal)
CPT/HCPCS: 84443